=== PATIENT | male | born 1975 | race Caucasian/White ===

== ENCOUNTER 2016-11-13 02:39 | Emergency (ER) | payer SELFPAY ==
[2016-11-13 02:43] VITALS: BP 130/75; PULSE 86; RESP 19; TEMP 97.9; O2SAT 95
--- NOTE | 2016-11-13 03:07 | PD ---
HPI Chief Complaint: Alcohol/Drug Intoxication Time Seen by Provider: 03:02 Travel History International Travel<30 days: No Contact w/Intl Traveler<30days: No Traveled to known affect area: No History of Present Illness HPI 41-year-old white male presents to emergency department by EMS with police assistance. The patient is under Marchman act due to alcohol intoxication. The patient was found heavily intoxicated laying on side of the road. The patient when contacted by EMS services became uncooperative and the patient was taken to the ground by PD as well as EMS. On the ground the patient proceeded to rub his face on the ground. The patient here denies any medical complaints. He states that he is here from [facility] and has been drinking alcohol. He states that [place]. He denies any toxic ingestions. He denies any drugs. He denies back up. Denies any suicidal homicidal ideation. [facility] Past Medical History Medical History: Denies Significant Hx Tetanus Vaccination: < 5 Years Past Surgical History Surgical History: No Previous Surgery Social History Alcohol Use: Yes Tobacco Use: No Substance Use: No Allergies-Medications (Allergen,Severity, Reaction): Coded Allergies: Penicillin (Verified Allergy, Severe, 11/13/16) Reported Meds & Prescriptions Reported Meds & Active Scripts Active No Active Prescriptions or Reported Medications Review of Systems ROS Limitations: Intoxication Physical Exam Narrative GENERAL: Well-nourished, well-developed patient. Smells of EtOH. Appears heavily intoxicated SKIN: Warm and dry. Patient has abrasions and soft tissue swelling to the forehead, right eyebrow, right cheek, and left elbow. No lacerations. HEAD: Normocephalic and atraumatic. EYES: No scleral icterus. No injection or drainage. ENT: No nasal drainage noted. Mucous membranes pink. Airway patent. No dental injury NECK: Supple, trachea midline. Moves head freely without obvious discomfort. CARDIOVASCULAR: Regular rate and rhythm without murmurs, gallops, or rubs. RESPIRATORY: Breath sounds equal bilaterally. No accessory muscle use. GASTROINTESTINAL: Abdomen soft, non-tender, nondistended. EXTREMITIES: No cyanosis or edema. BACK: Nontender without obvious deformity. No CVA tenderness. NEURO: Patient is alert and oriented. no sensorimotor deficits. Nonfocal. Slurred speech. PSYCH: No delusions. No auditory or visual hallucinations. Data Data Last Documented VS Vital Signs Date Time Temp Pulse Resp B/P Pulse Ox O2 Delivery O2 Flow Rate FiO2 11/13/16 02:43 97.9 86 19 130/75 95 MDM Medical Decision Making Medical Screen Exam Complete: Yes Emergency Medical Condition: Yes Medical Record Reviewed: Yes Differential Diagnosis Differential diagnoses: Alcohol intoxication, substance abuse, electrolyte abnormality, malingering Narrative Course The patient tells us that he has a significant other at home. We have attempted to call on 2 occasions but no one answers. The patient will be allowed to sober appearing the ER. His wounds are cleansed and dressed by the nursing staff. The patient will be allowed to sober up. In the ER. Once he exhibits sobriety his Marchman act will be lifted and he will be allowed to go home. This is alcohol intoxication, Marchman act Diagnosis Primary Impression: Alcohol intoxication Qualified Code: F10.920 - Alcohol intoxication, uncomplicated Additional Impression: Marchman act Patient Instructions: General Instructions Additional Instructions: Rest. Increase fluids. Avoid alcohol. Avoid illegal substances. Daily wound care with soap, water, Neosporin. Sunscreen and Wesley for 6 months. Follow-up with Camila Saunders for detox. Do not operate a car or any heavy machinery under the influence of alcohol or drugs. Follow-up with a medical doctor this week. Return to the ER for emergencies Med/Other Pt SpecificInfo: No Meds Exist/No RX given (lashes), Wound Care Scripts No Active Prescriptions or Reported Meds Disposition: 01 DISCHARGE HOME Condition: Stable Yo Cabral Nov 13, 2016 03:07
[2016-11-13 06:00] VITALS: BP 132/76; PULSE 84; RESP 20; O2SAT 96
== END 2016-11-13 07:46 | disposition home or self-care (01) ==
LOC: NEPD 02:39
DX: F10.920 Alcohol use, unspecified with intoxication, uncomplicated (principal); S00.81XA Abrasion of other part of head, initial encounter; X58.XXXA Exposure to other specified factors, initial encounter; Y93.89 Activity, other specified; Y92.9 Unspecified place or not applicable; Y99.8 Other external cause status
CPT/HCPCS: 99283